=== PATIENT | male | born 1970 | race African-American/Black ===

== ENCOUNTER 2017-11-07 06:13 | Emergency (ER) | payer BC ==
--- NOTE | 2017-11-07 06:40 | ED ---
HPI Chest Pain - HPI Summary HPI Summary: Patient presents with episode of chest discomfort this morning while sleeping. He reports this felt like a pressure in the right side of his chest with fluttering associated with shortness of breath. This lasted for about 30 minutes. Female marketing services manager provided him with a 325mg ASA which he does not typically take. He denies any symptoms at this point in time and he denies associated symptoms of diaphoresis, jaw pain, arm pain, chest pain, back pain, nausea/vomiting, fatigue, headache, change in vision, numbness, tingling, weakness. He reports he's been experiencing these symptoms on and off over the past month. They have mostly occurred in the morning before he's had anything to eat or drink. He admits to history of hypertension and takes lisinopril 10 mg but also admits he has been inconsistent with taking this as of late. His home blood pressure runs in the 140s systolic. He follows with his PCP once a year. He drinks alcohol once on the weekend and denies smoking or recreational drug use as well as amphetamines or sport enhancing supplements. He has been under stress lately as he is working and taking a school course online. Partner also admits he snores with episodes of apnea at times. This has not yet been investigated. He had been going to the gym up until a month ago but reports he hasn't been going due to busy schedule. Since these symptoms started in his chest over this past month he denies chest pain/pressure/ shortness of breath with exertion otherwise including carrying bags upstairs, etc. Family history of father having diabetes and possibly hypertension however no known early cardiac , [place], stroke. - History of Current Complaint Chief Complaint: EDChestPainROMI Time Seen by Provider: 11/07/17 06:20 Hx Obtained From: Patient, Family/Warning Coordination Meteorologist - female marketing services manager Pain Intensity: 0 - Allergy/Home Medications Allergies/Adverse Reactions: Allergies Allergy/AdvReac Type Severity Reaction Status Date / Time naproxen Allergy See Comment Verified 11/07/17 06:36 Home Medications: Home Medications Lisinopril TAB* 5 mg PO DAILY 11/07/17 [History Confirmed 11/07/17] PMH/Surg Hx/FS Hx/Imm Hx Previously Healthy: Yes Endocrine/Hematology History: Denies: Hx Anticoagulant Therapy, Hx Blood Disorders, Hx Diabetes, Hx Thyroid Disease, Hx Anemia, Hx Coagulopothy Cardiovascular History: Reports: Hx Hypertension - inconsistent w/ med Denies: Hx Aneurysm, Hx Angina, Hx Atrial Fibrillation, Hx Congenital Heart Disease, Hx Congestive Heart Failure, Hx Deep Vein Thrombosis, Hx Embolism, Hx Hypercholesterolemia, Hx Myocardial Infarction, Hx Syncope, Hx Valvular Heart Disease Respiratory History: Denies: Hx Asthma, Hx Chronic Obstructive Pulmonary Disease (COPD), Hx Sleep Apnea - not dx but reports snoring and apnic episodes GI History: Reports: Hx Gastroesophageal Reflux Disease - intermittent Denies: Hx Ulcer Musculoskeletal History: Denies: Hx Rheumatoid Arthritis, Hx Osteoporosis, Hx Scoliosis Neurological History: Reports: Hx Headaches Denies: Other Neuro Impairments/Disorders Infectious Disease History: No Infectious Disease History: Denies: Hx Clostridium Difficile, Hx Hepatitis, Hx Human Immunodeficiency Virus (HIV), Hx of Known/Suspected MRSA, Hx Shingles, Hx Tuberculosis, Traveled Outside the [place] in Last 30 Days - Family History Known Family History: Positive: Diabetes - father - Social History Occupation: Employed Full-time - + taking on-line courses Lives: With Family Alcohol Use: Weekly - weekends Hx Substance Use: No Substance Use Type: Reports: None Hx Tobacco Use: No Smoking Status (MU): Never Smoked Tobacco Review of Systems Constitutional: Negative Negative: Fever, Chills, Fatigue Eyes: Negative ENT: Negative Cardiovascular: Other - currently, no sx Respiratory: Other - currently, no sx Gastrointestinal: Negative Positive: no symptoms reported Musculoskeletal: Negative Skin: Negative Neurological: Negative Negative: Headache, Weakness, Paresthesia, Numbness, Syncope, Slurred Speech Positive: Anxious All Other Systems Reviewed And Are Negative: Yes Physical Exam Triage Information Reviewed: Yes Vital Signs On Initial Exam: Initial Vitals Temp Pulse Resp BP Pulse Ox 97.3 F 55 18 174/107 99 11/07/17 06:18 11/07/17 06:18 11/07/17 06:18 11/07/17 06:18 11/07/17 06:18 Vital Signs Reviewed: Yes Appearance: Positive: Well-Appearing, No Pain Distress, Well-Nourished Skin: Positive: Warm, Skin Color Reflects Adequate Perfusion, Dry Head/Face: Positive: Normal Head/Face Inspection Eyes: Positive: Normal, EOMI ENT: Positive: Normal ENT inspection, Hearing grossly normal, Pharynx normal - mucosa moist Neck: Positive: Supple, Nontender Respiratory/Lung Sounds: Positive: Clear to Auscultation, Breath Sounds Present. Negative: Rales, Rhonchi, Wheezes Cardiovascular: Positive: Normal, S1, S2. Negative: Murmur, Rub, Leg Edema Left , Leg Edema Right Abdomen Description: Positive: Nontender, No Organomegaly, Soft Bowel Sounds: Positive: Present Musculoskeletal: Positive: Normal, Strength/ROM Intact Neurological: Positive: Normal, Sensory/Motor Intact, Alert, Oriented to Person Place, Time, CN Intact II-III Psychiatric: Positive: Anxious Diagnostics - Vital Signs Vital Signs Temp Pulse Resp BP Pulse Ox 11/07/17 06:22 54 21 174/98 99 11/07/17 06:18 97.3 F 55 18 174/107 99 - Laboratory Result Diagrams: 11/07/17 06:30 11/07/17 06:30 Lab Statement: Any lab studies that have been ordered have been reviewed, and results considered in the medical decision making process. Chest Pain Course/Dx - Course Course Of Treatment: Pt reports episode of chest "flutters" w/ SOB and pressure this morning. Lasted 30 mins and now he feels fine. Took 325mg ASA prior to arrival. He admits he's had multiple episodes over the past month. He's also stopped going to the gym and been under more stress with work and school. Has HTN but has been inconsistent w/ his CATHI inhibitor. He reports cough since on CATHI and BP has not been 120 or less (140's-130's). He's . No h/ o angioedema. also admits he snores and has had episodic apnea. Mallampati score is 4. ECG here is w/o acute findings - 55bpm, NSR, no ST elevations - early repol (reviewed by Dr. Santos as well). Labs are unremarkable for acute pathology and trops neg x 2. CXR w/o acute findings. Pt has been stable and comfortable since here. BP has been elevated but asx - suspect anxiety. Discussed results and suggested outpt w/u w/ PCP as well as possible change in anti-hypertensive (switch from CATHI to CCB). Dr. Hogue is agreeable and requests pt stops by to make an appt today. She additionally reports normal lipid panel and no other risks factors in past medical hx. Explained to pt and if sx return or new danger s/sx occur, he needs to return to ED. They agree w/ plan - Diagnoses Provider Diagnoses: Chest pain of uncertain etiology Discharge - Sign-Out/Discharge Documenting (check all that apply): Patient Departure - Discharge Plan Condition: Stable Disposition: HOME Patient Education Materials: Chest Pain (ED), Stress (ED), Hypertension (ED) Forms: *Work Release Referrals: Sirisha Hogue MD [Primary Care Provider] - Additional Instructions: The definitive cause of your chest symptoms were not identified today however you do not appear to be having an acute heart attack or arrhythmia. Your blood pressure is also poorly controlled. It is recommended that you follow-up with your PCP this week for further workup and possible change of your antihypertensive from an CATHI inhibitor to calcium channel evelia. PCP will decide what is best for your care. You may also be a good candidate for a sleep study as you have reported episodes of snoring and apnea. This condition can lead to high blood pressure and cause stress on the heart. Again, your PCP may order this test if necessary. Additionally, you have reported increased stress over the past month. It is important that you take time to balance your lifestyle (ie, work, school, relaxation, etc) as stress can be harmful to the physiologic body. See educational handout for guidance on how to manage this. You may also discuss with your PCP for further guidance. You may benefit from starting an aspirin daily until seen by PCP. You may continue or stop this medication based on your PCP's recommendation. *If in the meantime you develop return of your symptoms from today (i.e. chest pressure, shortness of breath, fluttering in the chest) and/or headache, change in vision, chest pain, jaw pain, arm pain, nausea/vomiting, sweating, fatigue, return to the emergency department immediately. - Billing Disposition and Condition Condition: STABLE Disposition: Home
[2017-11-07 06:50] LABS: ABS Basophils 0 10^3/ul (0-0.2); ABS Eosinophils 0.2 10^3/ul (0-0.6); ABS Lymphocytes 1.8 10^3/ul (1.0-4.8); ABS Monocytes 0.5 10^3/ul (0-0.8); ABS Neutrophils 2.8 10^3/ul (1.5-7.7); ABS Nucleated RBC 0 10^3/ul; Eosinophil % 2.9 % (0-6); Hematocrit 45 % (42-52); Hemoglobin 14.7 g/dl (14.0-18.0); Mean Corpuscular HGB Conc 33 g/dl (31-36); Mean Corpuscular Hemoglobin 28 pg (27-31); Mean Corpuscular Volume 87 fL (80-94); Mean Platelet Volume 10.1 um3 (7.4-10.4); Nucleated Red Blood Cells % 0.1; Platelet Count 148 10^3/ul (150-450); Red Blood Count 5.23 10^6/ul (4.00-5.40); Red Cell Distribution Width 14 % (10.5-15); White Blood Count 5.3 10^3/ul (3.5-10.8)
[2017-11-07 07:02] LABS: INR 0.88 (0.77-1.02)
[2017-11-07 07:13] LABS: EGFR Non-African American 83.7 (>60)
--- NOTE | 2017-11-07 07:54 | RAD ---
Indication: Chest pain. Comparison: March 10, 2014 Technique: Upright AP 0711 hours Report: No focal pulmonary lesion, compelling alveolar consolidation, pleural effusion, pneumothorax. Upper normal heart size. Unremarkable central pulmonary vasculature and mediastinal contours. IMPRESSION: #. No evidence for acute intrathoracic disease.
[2017-11-07 11:19] VITALS: BP 156/90
== END 2017-11-07 11:31 | disposition home or self-care (01) ==
LOC: ED 06:13
DX: R07.89 Other chest pain (principal); R06.02 Shortness of breath; R05 Cough; I10 Essential (primary) hypertension; Z82.49 Family history of ischemic heart disease and other diseases of the circulatory system; Z88.5 Allergy status to narcotic agent
CPT/HCPCS: 36415; 71045; 80053; 83605; 83735; 84443; 84484; 85025; 85610; 85730; 93005; 99282

== ENCOUNTER 2018-05-13 14:14 | Emergency (ER) | payer BC ==
[2018-05-13 14:34] VITALS: BP 156/92
[2018-05-13] MEDS ORDERED: Tetan/Diph/Pertus SYR(Tdap)* 0.5 ML SYR(BOOSTRIX) use SYR IM ONE (14:53)
--- NOTE | 2018-05-13 15:14 | UC ---
Laceration HPI - HPI Summary HPI Summary: 48 y/o male presents to the urgent care c/o left anterior thigh w/ a laceration w/ a chain saw aroub d1.5hrs ago today. Pt report he was about to cut some bushes when he accidentally dropped it on top of his left thigh. Chain saw was off. Painis mild touch 2/10, bleeding mild and stopped w/ pressure. he is not UTD w/ Tetanus vaccine. pt denies fever, numbness or tingling sensation over the left extremity, SOB, chest pain, abdominal pain, N/V/d. - History Of Current Complaint Chief Complaint: UCLaceration Stated Complaint: HIT HIS LEFT LEG WITH A CHAINSAW Time Seen by Provider: 05/13/18 15:03 Hx Obtained From: Patient Laceration Location: Thigh - left Mechanism Of Injury: Sharp Trauma Onset/Duration: Sudden Onset, Lasting Hours - 1.5hrs Severity: Mild Pain Intensity: 6 Pain Scale Used: 0-10 Numeric Aggravating Factors: Other: - touch - Allergies/Home Medications Allergies/Adverse Reactions: Allergies Allergy/AdvReac Type Severity Reaction Status Date / Time naproxen Allergy See Comment Verified 05/13/18 14:34 Home Medications: Home Medications Losartan TAB* [Cozaar TAB*] 25 mg PO DAILY 05/13/18 [History Confirmed 05/13/18] PMH/Surg Hx/FS Hx/Imm Hx Previously Healthy: Yes Cardiovascular History: Hypertension Other History Of: Negative For: Anticoagulant Therapy - Surgical History Surgical History: None - Family History Known Family History: Positive: Cardiac Disease, Hypertension, Diabetes - father - Social History Occupation: Employed Full-time Lives: With Family Alcohol Use: None Substance Use Type: None Smoking Status (MU): Never Smoked Tobacco - Immunization History Most Recent Tetanus Shot: unknown Hx Tetanus, Diphtheria Vaccination: No Review of Systems All Other Systems Reviewed And Are Negative: Yes Constitutional: Positive: Negative Skin: Positive: Other - laceration in the left thigh w/ a chain saw Eyes: Positive: Negative ENT: Positive: Negative Respiratory: Positive: Negative Cardiovascular: Positive: Negative Gastrointestinal: Positive: Negative Genitourinary: Positive: Negative Motor: Positive: Negative Neurovascular: Positive: Negative Musculoskeletal: Positive: Other: - left thigh pain s/p laceration Neurological: Positive: Negative Psychological: Positive: Negative Is Patient Immunocompromised?: No Physical Exam - Summary Physical Exam Summary: Vital Signs Reviewed: Yes General: well developed, well nourished male sitting in the examining table w/o any apparent distress Eye Exam: Normal Eyes: Positive: Conjunctiva Clear - PERRLA, EOMI, fundi grossly normal ENT: Positive: Normal ENT inspection, Hearing grossly normal, Pharynx normal, TMs normal Neck: Positive: Supple, Nontender, No Lymphadenopathy Respiratory: Positive: Chest non-tender, Lungs clear, Normal breath sounds, No respiratory distress Cardiovascular: Positive: RRR, No Murmur, Pulses Normal, Brisk Capillary Refill Abdomen Description: Positive: Nontender, No Organomegaly, Soft. Negative: CVA Tenderness (R), CVA Tenderness (L) Bowel Sounds: Positive: Present Musculoskeletal: Positive: Strength Intact, ROM Intact, No Edema Neurological: Positive: Alert, Muscle Tone Normal Psychological Exam: Normal Skin: Positive:anterior mid left thigh w/ a linear superficial laceration about 3.5cm in size, non bleeding, no foreign body observed. mild tenderness to palpation, no ecchymosis or swelling observed . FROM of lf extremity, sensation intact, capillary refill brisk, and pulses WNL. Triage Information Reviewed: Yes Vital Signs: Initial Vital Signs Temp 98.0 F 05/13/18 14:31 Pulse 58 05/13/18 14:31 Resp 16 05/13/18 14:31 BP 156/92 05/13/18 14:31 Pulse Ox 99 05/13/18 14:31 Laceration Repair - Laceration Repair 1 Description: Linear - superficial linear laceration over the left mid anterior thigh Laceration Size After Repair: Length (cm) - 3.5cm Modified For Repair: No Cleansing Completed Via Routine Prep: Yes Irrigation With Pressure Irrigation Device: Yes Closure Material: SteriStrips - 5 steri-strips Closure Method: Single Layer Suture Of: Skin Laceration Course/Dx - Course/Dx Course Of Treatment: 48 y/o male presents to the urgent care c/o left anterior thigh w/ a laceration w/ a chain saw aroub d1.5hrs ago today. Pt report he was about to cut some bushes when he accidentally dropped it on top of his left thigh. Chain saw was off. Painis mild touch 2/10, bleeding mild and stopped w/ pressure. he is not UTD w/ Tetanus vaccine. pt denies fever, numbness or tingling sensation over the left extremity, SOB, chest pain, abdominal pain, N/V/d. Hx obtained. Pt w/ anterior mid left thigh w/ a linear superficial laceration about 3.5cm in size , non bleeding, no foreign body observed. mild tenderness to palpation, no ecchymosis or swelling observed on examination. LACERATION PROCEDURE NOTE: . Copious irrigation was done with saline and the wound explored. There was no FB or deep structure injury noted. wound cleaned w/ Iodine swabs. Laceration closed w/ 5 steri-strips. Wound dressed w/ sterile gauze.The Pt tolerated the procedure well without adverse effects. Neurovascular intact and FROM of LF Extremity. Tdap ordered and applied by nurse. Pt advised if any signs of infection develop to immediately return to the urgent care of PCP for further management and treatment. Pt's BP is elevated today advised to decrease salt in diet, monitor BP and f/u with PCP for further management. Pt understood and agreed and left the clinic ambulating A&Ox3. - Differential Dx - Laceration/Wound Differental Diagnoses: Abrasion, Cellulitis, Dehiscence, Laceration, Puncture Wound, Tendon Laceration - Diagnosis Provider Diagnosis: Laceration of left thigh without complication, Uncontrolled hypertension Discharge - Sign-Out/Discharge Documenting (check all that apply): Patient Departure - D/C home All imaging exams completed and their final reports reviewed: No Studies - Discharge Plan Condition: Stable Disposition: HOME Prescriptions: Bacitracin OINTMENT* 1 applic TOPICAL BID #1 tube Patient Education Materials: Laceration (ED), Skin Adhesive Care (ED) Referrals: Sirisha Hogue MD [Primary Care Provider] - 3 Days Additional Instructions: 1-Please apply topical antibiotic over the wound when steri-strips fall off. Keep wound clean and dry 2-Take Ibuprofen or Tylenol PO q6-8hrs prn for pain or swelling. 3- If you develop fever or redness around your thigh please return to the Urgent care or f/u w/ your PCP. 4-Your BP is elevated today. please decrease salt in your diet, monitor BP and if it continues to be elevated please f/u with your PCP for further management. - Billing Disposition and Condition Condition: STABLE Disposition: Home - Attestation Statements Provider Attestation: I was available for consult. This patient was seen by the SURJIT. The patient was not presented to , seen by or examined by me Allie Leach MD
== END 2018-05-13 15:39 | disposition home or self-care (01) ==
LOC: UCEAST 14:14
DX: S71.112A Laceration without foreign body, left thigh, initial encounter (principal); W31.2XXA Contact with powered woodworking and forming machines, initial encounter; Y92.9 Unspecified place or not applicable; Z23 Encounter for immunization; I10 Essential (primary) hypertension; Z88.8 Allergy status to other drugs, medicaments and biological substances
CPT/HCPCS: 90715; 99212; G0463